=== PATIENT | male | born 1995 | race Caucasian/White ===

== ENCOUNTER 2017-09-19 00:11 | Emergency (ER) | payer BC ==
[~2017-09-19] VITALS: Ht 182.9 cm; Wt 115.5 kg
[2017-09-19 00:29] VITALS: BP 153/85; PULSE 104; TEMP 38.8; O2SAT 97; Ht 182.9 cm; Wt 115.5 kg
[2017-09-19] MEDS ORDERED: OSELTAMIVIR PHOSPHATE 75 MG CAP PO STA (00:47)
[2017-09-19] MEDS ORDERED: OSEL75CA12 PO (00:49)
--- NOTE | 2017-09-19 01:00 | EMERGENCY ROOM VISIT NOTE ---
History First contact with patient: 00:28 Chief Complaint: FLU LIKE SX Stated Complaint: FEVER,SORE THROAT,RUNNY NOSE,PICKETT History of Present Illness The patient is a 22 year old male who presents to the Emergency Room with complaints of fever chills, body aches and pains runny nose and headache for the past day. Patient states his friend was diagnosed with influenza a few days ago. He was around him. Patient states he would like to have Tamiflu. Patient denies chest pain, dyspnea, neck stiffness, sore throat, abdominal pain , vomiting, diarrhea. He is tolerating p.o. fluids and food. Review of Systems An 10 system review of systems was completed with positives and pertinent negatives listed in the HPI. Past Medical/Surgical History None Social History Smoking Status: Never Smoker Smokeless Tobacco Use: No Drug Use: none Marital Status: in relationship Occupation Status: employed Current/Historical Medications Scheduled Oseltamivir (Tamiflu), 75 MG PO BID Physical Exam Vital Signs Date Time Temp Pulse Resp B/P (MAP) Pulse Ox O2 Delivery O2 Flow Rate FiO2 09/19/17 00:29 38.8 104 16 153/85 97 Room Air Physical Exam VITALS: Vitals are noted on the nurse's note and reviewed by myself. Vital signs febrile GENERAL: Pleasant male, in no acute distress, nondiaphoretic, well-developed well-nourished. SKIN: The skin was without rashes, erythema, edema, or bruising. There is no tenting of the skin. Capillary reflex less than 2 seconds. HEAD: Normocephalic atraumatic. EARS: External auditory canals clear, tympanic membranes pearly alexander without erythema or effusion bilaterally. EYES: Pupils equal round and reactive to light and accommodation. Conjunctivae without injection, sclerae without icterus. Extraocular movements intact. NOSE: Patent, turbinates without inflammation or discharge. No sinus tenderness. MOUTH: Mucous membranes mildly dry. Pharynx without erythema or exudate. Uvula midline. Airway patent. Tongue does not deviate. NECK: Supple without nuchal rigidity. No lymphadenopathy. No thyromegaly. Cervical spine is nontender. No JVD. HEART: Regular rate and rhythm without murmurs gallops or rubs. LUNGS: Clear to auscultation bilaterally without wheezes, rales or rhonchi. No dullness to percussion. No retractions or accessory muscle use. ABDOMEN: Positive bowel sounds x 4. Normal tympanic percussion. Soft, nontender, without masses or organomegaly. Alcantara sign negative. No guarding or rebound tenderness. MUSCULOSKELETAL: No muscle atrophy, erythema, or edema noted. NEURO: Patient was alert and oriented to person place and time. Normal sensation to light and sharp touch. . No focal neurological deficits. Medical Decision & Procedures ED Course Prior records/ancillary studies reviewed. Triage Nursing notes reviewed. Additional history obtained from friend. The patient's history was concerning for fever. Differential diagnosis: Etiologies such as viral syndrome, otitis, pharyngitis, pneumonia, influenza, meningitis, urinary tract infection, sepsis, bacteremia, as well as others were entertained. Physical examination: Patient is alert interactive and able to tolerate fluids ER treatment provided: Tamiflu On reassessment the patient felt better. Diagnostics interpreted by me: Deferred This appears to be consistent with influenza. Patient was around someone that was diagnosed with influenza by testing a few days ago. He is now symptomatic. Patient is requesting Tamiflu. He was offered the test and declined. I feel this is reasonable as he clinically presents with signs and symptoms of influenza. He has been symptomatic for less than 24 hours. He was informed of the Tamiflu may only decrease the severity of his illness by up to 1 day and does have side effects and is expensive. He verbalized understanding of this. He still is requesting this medication. He was strongly encouraged to continue Tylenol / Motrin for fever reduction and take all medicines as directed. He was advised to stay well-hydrated and rest and stay at home until he is 24 hours fever free as he is contagious. He is advised to return to the intermediate for high fevers, lethargy, neck stiffness, worsening sign or symptoms or as needed. Patient had no signs of meningitis. He was well- appearing. By the evaluation outlined above emergent etiologies such as otitis, pharyngitis, pneumonia, meningitis, urinary tract infection, sepsis, bacteremia , as well as others were deemed relatively unlikely. The pt informed about the findings as listed above. All questions were answered and pleased with the treatment. Return instructions were outlined and the patient was discharged in stable condition. Outpatient prescription management: Tamiflu Referral: The patient was referred back to their primary care physician for follow-up in 2 to 3 days for a recheck of the current condition. Medical Decision As above Medication Reconcilliation Current Medication List: was personally reviewed by me Blood Pressure Screening Patient's blood pressure: Elevated blood pressure Blood pressure disposition: Elevated BP felt to be situational Impression Primary Impression: Influenza Departure Information Dispostion Home / Self-Care Condition GOOD Prescriptions Oseltamivir (Tamiflu) 75 Mg Cap 75 MG PO BID for 5 Days, #10 CAP Prov: Magda Castellano .NAVID 09/19/17 Forms HOME CARE DOCUMENTATION FORM, Work Instructions, Return To Work: 5 days IMPORTANT VISIT INFORMATION Patient Instructions Fever - [facility], [facility], ED Flu Additional Instructions You are highly contagious. You should stay at home until you are 24 hours fever free. Tamiflu 75 m tablet twice a day for 5 days.Any medication can cause an allergic reaction, stop the pills immediately and return to the ER for rash, hives, breathing difficulties, or swelling. Acetaminophen(Tylenol) may be used for fever or pain. Use 1000mg every six hours as needed. Avoid using more than 3000mg in a 24 hour period. (AND/OR) Ibuprofen(Motrin, Advil) may be used for fever or pain. Use 600mg every six hours as needed. Take with food. Avoid using more than 2400mg in a 24 hour period. Do not use 2400mg per day for more than three consecutive days without physician direction. Prolonged inappropriate use can lead to stomach upset or ulcers. Afrin nasal spray: 2-3 sprays to each nostril twice daily as needed for congestion. Do not use for more than 3-4 days because it can lead to worsening rebound congestion. Pseudoephedrine(Sudaphed): 30-60mg every 6 hours as needed for nasal congestion. Do not take this with other stimulant products or supplements. Rest and drink plenty of fluids. Controlling your fever with Tylenol and Ibuprofen as above will make you feel better. Wash your hands after nose blowing, sneezing, or coughing. Most germs are spread through contact, therefore improper hygiene may result in your close contacts and loved ones becoming ill just like you. Continue current medications. Return to the ER for severe headache, neck stiffness, chest pain, difficulty breathing, fevers, vomiting, worsening of your condition, or as needed. Follow up with your primary physician this week for a recheck of your current condition. Work Instructions Return To Work: 5 days
== END 2017-09-19 01:05 | disposition home or self-care (01) ==
LOC: C.EDB 00:13 → C.EDA 01:05
DX: J11.1 Influenza due to unidentified influenza virus with other respiratory manifestations (principal)